=== PATIENT | female | born 1995 | race Caucasian/White ===

== ENCOUNTER 2020-05-12 19:24 | Emergency (ER) | payer OTHER ==
[~2020-05-12] VITALS: Ht 167.6 cm; Wt 93.0 kg
[~2020-05-12 19:24] MED LIST: ALBU90OI; ALBU90OI INH; AMOX500 PO; Amoxicillin500 MG PO; BUPROPION; Bactrim Ds Tab1 EACH PO; Biaxin500 MG PO; CIME400 PO; CIPR500 PO; CODACE30 PO; CRUTCH3 USE; CRUTCH4 USE; Cipro500 MG PO; DULO30 PO; ESCI10 PO; ESCI20 PO; ESTR2 PO; Epipen0.3 MG/0.3 IM; HYDACE5 PO; HYDACE7.5L PO; HYOS.125 SL; IBUP600 PO; IBUP800 PO; LEVSOD25 PO; LEVSOD50 PO; Loperamide2 MG PO; METO5A PO; MULVITMINE PO; Macrobid 100 M100 MG PO; NAPR500 PO; NAPR550 PO; Norco 5-325 Ta1 EACH PO; ONDA4ODT MM; OXYACE5T PO; PHENA100 PO; PHENA200 PO; PROM25 PO; Pepcid40 MG PO; Percocet 5-3251 EACH PO; Prednisone20 MG PO; Prilosec20 MG PO; Protonix40 MG PO; Pyridium200 MG PO; RXCODACET PO; RXHYDACE PO; RXPHEN200 PO; RXSULTRIDS PO; RXTRAM50 PO; SULTRIDS PO; TRAM50 PO; Zofran Odt4 MG PO; Zofran Odt4 MG SL
[2020-05-12 20:29] LABS: BASOPHILS ABSOLUTE AUTO 0.07 K/mm3 (0.00-0.23); BASOPHILS PERCENT AUTO 1 % (0-2); EOSINOPHILS ABSOLUTE AUTO 0.09 K/mm3 (0.00-0.68); EOSINOPHILS PERCENT AUTO 1 % (0-6); Hematocrit 44.7 % (33.0-51.0); Hemoglobin 14.9 g/dL (11.5-16.0); IMMATURE GRAN ABSOLUTE AUTO 0.04 K/mm3 (0.00-0.10); IMMATURE GRAN PERCENT AUTO 0 % (0-1); LYMPHOCYTES ABSOLUTE AUTO 3.06 K/mm3 (0.84-5.20); LYMPHOCYTES PERCENT AUTO 21 % (21-46); MONOCYTES PERCENT AUTO 6 % (4-13); Mean Corpuscular HGB Conc 33.3 g/dL (31.5-36.5); Mean Corpuscular Volume 93 fL (80-100); Mean Platelet Volume 8.4 fL (9.1-12.4); NEUTROPHILS ABSOLUTE AUTO 10.25 K/mm3 (1.96-9.15); NEUTROPHILS PERCENT AUTO 71 % (41-73); Platelet Count 422 K/mm3 (150-400); RDW Coefficient Variation 12.7 % (11.7-14.2); RDW Standard Deviation 43.8 fL (35.1-46.3); Red Blood Cell Count 4.81 M/mm3 (3.80-5.20); White Blood Cell Count 14.41 K/mm3 (4.00-11.30)
[2020-05-12 20:55] LABS: Alanine Aminotransfer (ALT/SGP 47 U/L (12-78); Alk Phos 50 U/L (50-136); Anion Gap 11 mmol/L (6-16); Aspartate Aminotrans (AST/SGOT 44 U/L (12-37); Bilirubin, Total 0.3 mg/dL (0.1-1.0); Blood Urea Nitrogen 9 mg/dL (8-24); Bun/Creatinine Ratio 15.2 (12.0-20.0); CO2, Blood 23 mmol/L (21-32); Calcium, Blood 8.8 mg/dL (8.5-10.1); Chloride, Blood 108 mmol/L (98-108); Creatinine, Blood 0.59 mg/dL (0.40-1.00); Globulin, Blood 4.1 g/dL (2.2-4.0); Glomerular Filtration Rate >60 (60-); Glucose, Blood 139 mg/dL (70-99); Potassium, Blood 3.6 mmol/L (3.5-5.5); Sodium, Blood 142 mmol/L (136-145); Total Protein, Blood 8.1 g/dL (6.4-8.2); Troponin I <0.015 ng/mL (0.000-0.040)
[2020-05-12 21:50] LABS: Free Thyroxine 1.01 ng/dL (0.70-1.60)
[2020-05-12 21:52] LABS: Thyroid Stimulating Hormone 1.7 uIU/mL (0.360-4.800)
== END 2020-05-12 21:48 | disposition home or self-care (01) ==
LOC: ER 19:24
PROVIDERS: Emergency Medicine
DX: R00.0 Tachycardia, unspecified (principal); F41.9 Anxiety disorder, unspecified; Z87.891 Personal history of nicotine dependence
CPT/HCPCS: 36415; 71046; 80053; 84439; 84443; 84484; 85025; 93005; 93010; 96374; 96375; 99285-25; J0153; J2060; J2405; J7030

== ENCOUNTER 2021-01-15 20:32 | Emergency (ER) | payer OTHER ==
[~2021-01-15] VITALS: Ht 167.6 cm; Wt 88.5 kg
[2021-01-15] MEDS ORDERED: SERT100 (21:01)
[2021-01-15] MEDS ORDERED: OMEP20ER (21:01)
[2021-01-15] MEDS ORDERED: BLOOD PRESSURE (21:02)
[2021-01-15] MEDS ORDERED: LIDO700A20 TOP (22:05)
[2021-01-15] MEDS ORDERED: Voltaren100 GM TOP (22:05)
== END 2021-01-15 22:39 | disposition home or self-care (01) ==
LOC: ER 20:32
DX: S23.29XA Dislocation of other parts of thorax, initial encounter (principal); E03.9 Hypothyroidism, unspecified; I10 Essential (primary) hypertension; Z79.899 Other long term (current) drug therapy; Z87.891 Personal history of nicotine dependence; X50.1XXA Overexertion from prolonged static or awkward postures, initial encounter
CPT/HCPCS: 71101; 96372; 99283-25; A9270; J1170; J1790; J1885

== ENCOUNTER 2022-01-17 10:47 | Inpatient (IN) | payer OTHER ==
[~2022-01-17] VITALS: Ht 167.6 cm; Wt 96.9 kg
[~2022-01-17 10:47] MED LIST changes: +BLOOD PRESSURE; +LIDO700A20 TOP; +OMEP20ER PO; +SERT100 PO; +Voltaren100 GM TOP
[2022-01-17] MEDS ORDERED: METOPROLOL TART PO (11:23)
[2022-01-17 11:31] LABS: BASOPHILS ABSOLUTE AUTO 0.07 K/mm3 (0.00-0.23); BASOPHILS PERCENT AUTO 1 % (0-2); EOSINOPHILS ABSOLUTE AUTO 0.04 K/mm3 (0.00-0.68); EOSINOPHILS PERCENT AUTO 1 % (0-6); Hemoglobin 15.3 g/dL (11.5-16.0); IMMATURE GRAN ABSOLUTE AUTO 0.02 K/mm3 (0.00-0.10); IMMATURE GRAN PERCENT AUTO 0 % (0-1); LYMPHOCYTES ABSOLUTE AUTO 2.11 K/mm3 (0.84-5.20); LYMPHOCYTES PERCENT AUTO 27 % (21-46); MONOCYTES ABSOLUTE AUTO 0.51 K/mm3 (0.16-1.47); MONOCYTES PERCENT AUTO 7 % (4-13); Mean Corpuscular HGB 32.4 pg (26.0-34.0); Mean Corpuscular HGB Conc 34.8 g/dL (31.5-36.5); Mean Corpuscular Volume 93 fL (80-100); Mean Platelet Volume 8.3 fL (9.1-12.4); NEUTROPHILS ABSOLUTE AUTO 5.04 K/mm3 (1.96-9.15); NEUTROPHILS PERCENT AUTO 65 % (41-73); Platelet Count 249 K/mm3 (150-400); RDW Coefficient Variation 14.9 % (11.7-14.2); RDW Standard Deviation 51.2 fL (35.1-46.3); Red Blood Cell Count 4.72 M/mm3 (3.80-5.20); White Blood Cell Count 7.79 K/mm3 (4.00-11.30)
[2022-01-17 11:33] LABS: Source, Urine Clean Catch
[2022-01-17 11:39] LABS: Bilirubin, Urine Neg (Neg); Blood, Urine Neg (Neg); Glucose Qualitative, Urine Neg (Neg); Ketones, Urine 2+ (Neg); Leukocyte Esterase, Urine 1+ (Neg); Nitrite, Urine Neg (Neg); Protein, Urine 2+ (Neg); Urobilinogen, Urine 1+ (Normal)
[2022-01-17 11:45] LABS: Appearance, Urine Hazy (Clear); Color, Urine Pale Yellow (P-Yellow); Red Blood Cells, Urine 0-2 /hpf (0-2)
[2022-01-17 11:46] LABS: Bacteria Few /hpf; Mucus Heavy (0-Heavy); Squamous Epithelial Cells Many /hpf (Few)
[2022-01-17 11:56] LABS: Alanine Aminotransfer (ALT/SGP 168 U/L (12-78); Albumin, Blood 3.9 g/dL (3.4-5.0); Alk Phos 81 U/L (50-136); Anion Gap 18 mmol/L (6-16); Aspartate Aminotrans (AST/SGOT 324 U/L (12-37); Bilirubin, Total 0.7 mg/dL (0.1-1.0); Blood Urea Nitrogen 10 mg/dL (8-24); Bun/Creatinine Ratio 15.8 (12.0-20.0); CO2, Blood 20 mmol/L (21-32); Calcium, Blood 8.7 mg/dL (8.5-10.1); Chloride, Blood 101 mmol/L (98-108); Creatinine, Blood 0.63 mg/dL (0.40-1.00); Globulin, Blood 3.8 g/dL (2.2-4.0); Glomerular Filtration Rate >60 (60-); Glucose, Blood 175 mg/dL (70-99); Potassium, Blood 3.5 mmol/L (3.5-5.5); Sodium, Blood 139 mmol/L (136-145); Total Protein, Blood 7.7 g/dL (6.4-8.2)
[2022-01-17 16:05] LABS: Triglycerides 1534 mg/dL (30-140)
[2022-01-17 16:46] LABS: Base Excess Venous -1.6 mmol/L; Bicarbonate Venous 23.5 mmol/L (24.0-30.0); PCO2 Venous 33.4 mmHg (38-42); PO2 Venous 63.2 mmHg (38-42); pH Blood Venous 7.44 (7.34-7.37)
--- NOTE | 2022-01-17 19:15 | NUR ---
Patient arrived on the unit at 1830. She was accompanied by one staff. Right away she complained of pain, she was given prn Fentanyl at 1900. Patient is currently NPO. RN gave report to oncoming shift. Patient had no requests at this time
[2022-01-17 22:08] LABS: Triglycerides 623 mg/dL (30-140)
--- NOTE | 2022-01-17 22:56 | NUR ---
PATIENT STATED PAIN 10/10 DURING REASSESSMENT OF PAIN AFTER SHIFT REPORT. PATIENT HAD ALREADY GOTTEN FENTYNL AT 1900. PATIENT STARTED TO FEEL NAUSEATED WELL, ZOFRAN WAS GIVEN. NOTIFIED PHYSICIAN OF PATIENTS WORSENING PAIN THAT IS NOT RELIEVED WITH CURRENT MEDICATION REGIME. LACTIC ACID CRITICAL AT 3.8, PHYSICIAN AWARE ORDERED 1L BOLUS. PATIENT CONTINUES TO EXPRESS PAIN. PHYSICIAN PUT ORDERS FOR UPGRADE TO ICU.
[2022-01-18 01:22] LABS: Anion Gap 10 mmol/L (6-16); Blood Urea Nitrogen 6 mg/dL (8-24); Bun/Creatinine Ratio 11.2 (12.0-20.0); CO2, Blood 21 mmol/L (21-32); Calcium, Blood 7.3 mg/dL (8.5-10.1); Chloride, Blood 111 mmol/L (98-108); Creatinine, Blood 0.54 mg/dL (0.40-1.00); Glomerular Filtration Rate >60 (60-); Glucose, Blood 155 mg/dL (70-99); Potassium, Blood 3.1 mmol/L (3.5-5.5); Sodium, Blood 142 mmol/L (136-145)
[2022-01-18 04:42] LABS: BASOPHILS ABSOLUTE AUTO 0.02 K/mm3 (0.00-0.23); BASOPHILS PERCENT AUTO 0 % (0-2); EOSINOPHILS PERCENT AUTO 1 % (0-6); Hematocrit 36.3 % (33.0-51.0); Hemoglobin 12.4 g/dL (11.5-16.0); IMMATURE GRAN ABSOLUTE AUTO 0.03 K/mm3 (0.00-0.10); IMMATURE GRAN PERCENT AUTO 0 % (0-1); LYMPHOCYTES ABSOLUTE AUTO 1.98 K/mm3 (0.84-5.20); LYMPHOCYTES PERCENT AUTO 24 % (21-46); MONOCYTES ABSOLUTE AUTO 0.55 K/mm3 (0.16-1.47); MONOCYTES PERCENT AUTO 7 % (4-13); Mean Corpuscular HGB 32.4 pg (26.0-34.0); Mean Corpuscular HGB Conc 34.2 g/dL (31.5-36.5); Mean Corpuscular Volume 95 fL (80-100); Mean Platelet Volume 9.8 fL (9.1-12.4); NEUTROPHILS PERCENT AUTO 67 % (41-73); Platelet Count 204 K/mm3 (150-400); RDW Standard Deviation 54.4 fL (35.1-46.3); Red Blood Cell Count 3.83 M/mm3 (3.80-5.20); White Blood Cell Count 8.18 K/mm3 (4.00-11.30)
[2022-01-18 06:26] LABS: International Normalized Ratio 1.05
[2022-01-18 06:32] LABS: Alanine Aminotransfer (ALT/SGP 131 U/L (12-78); Albumin, Blood 3.2 g/dL (3.4-5.0); Alk Phos 66 U/L (50-136); Anion Gap 8 mmol/L (6-16); Aspartate Aminotrans (AST/SGOT 268 U/L (12-37); Bilirubin, Total 0.9 mg/dL (0.1-1.0); Blood Urea Nitrogen 5 mg/dL (8-24); Bun/Creatinine Ratio 9.1 (12.0-20.0); CHOL/HDL RATIO 4.3; CO2, Blood 23 mmol/L (21-32); Calcium, Blood 7.7 mg/dL (8.5-10.1); Chloride, Blood 109 mmol/L (98-108); Cholesterol 172 mg/dL (50-200); Creatinine, Blood 0.55 mg/dL (0.40-1.00); Globulin, Blood 3.2 g/dL (2.2-4.0); Glomerular Filtration Rate >60 (60-); Glucose, Blood 123 mg/dL (70-99); HDL Cholesterol 40 mg/dL (>39); LDL/HDL RATIO 1.5; Low Density Lipoprotein Chol 61 mg/dL (0-110); Magnesium, Blood 2.4 mg/dL (1.6-2.4); Potassium, Blood 3.2 mmol/L (3.5-5.5); Sodium, Blood 140 mmol/L (136-145); Total Protein, Blood 6.4 g/dL (6.4-8.2); Triglycerides 355 mg/dL (30-140); Very Low Density Lipoprot Chol 71 mg/dL (6-28)
[2022-01-18 10:01] LABS: U Amphetamine Screen Not Detected; U Barbituate Screen Not Detected; U Benzodiazapine Screen Not Detected; U Cannabinoids Screen DETECTED; U Cocaine Screen Not Detected; U Methadone Screen Not Detected; U Methamphetamine Screen Not Detected; U Opiates Screen DETECTED; U Phencyclidine Screen Not Detected
[2022-01-18 10:02] LABS: U Buprenorphine Screen Not Detected; U Oxycodone Screen Not Detected; U Propoxyphene Screen Not Detected
--- NOTE | 2022-01-18 13:00 | NUR ---
UPDATE: This RN heard yelling and "help" coming from pt room. Pt's primary RN at bedside managing airway while pt having seizure. Dr. Nuñez called and notified; telephone order for 1mg of lorazapam.
--- NOTE | 2022-01-18 13:50 | NUR ---
1-2 minutes of witnessed contraction deserabret, then patient rasied knees to her chest was unconsolable scream, bitting on yankaur, medicated with 1 mg ativan, eyes nystagmus after ativan for 5 minutes, 2l o2 via nc, sats 95%, sbp 160, heart rate 160s, st rhythm, bs during episode was 202. patient lubna alert and oreinted, head ct done waiting for results, fentanyl production hardener restarted and patient educated on its use. patient deneis having a seizure any other time, no new medications have been ordered. resting in bed now, call light with in reach, makes needs known, reports jaw sorness, bp 161/107, denies cp or nv, wctm
--- NOTE | 2022-01-18 14:36 | NUR ---
DR CRABTREE NOTIFED DURING SEIZURE ACTIVITY, MEDICATED WITH ATIVAN, NEW ORDERS FOR ATIVAN PRN, LIBRIUM, D/C THE INSULIN GTT AND D10, PATIENT STILL ALERT AND ORIENTED, CALL LIGHT WITH IN REACH
--- NOTE | 2022-01-18 18:37 | NUR ---
ALERT AND ORIENTED, MAKES NEEDS KNOWN, WITNESSED 1-2 MINUTE DECORATE SEIZURE ACTIVITY, HEAD CT DONE, PATIENT DENEIS HAVING PREVIOUS SEIZURES, CIWA STARTED, FENTANYL OFFICE SERVICES MANAGER FOR L QUAD CONSTANT PAIN 5/10, L QUAD PAIN FROM PALPITATION, NPO, BSU TO VOID, SKIN CDI, TATOOS. LS CTA, CLEARS CONGESTION WITH COUGH, SATS ON RA 95-100%. NAUSEATED MEDICATED WITH ZOFRAN AND REGLAN. WILL RELAY TO PM RN, WCTM
--- NOTE | 2022-01-19 01:50 | NUR ---
Pain uncontrolled with LEAD PAINTER. Dr Hearn called, per physcian request, spoke with patient regarding past reaction to dilaudid. States "made heart rate go really high". Is willing to try it again since is on heart monitor. States just wants pain to let up. Advised Dr Hearn and order recieved for Dilaudid prn. Dilaudid removed from allergy list.
--- NOTE | 2022-01-19 05:13 | NUR ---
Medicated as needed for CIWA score of 8, per eMAR. Rested for a couple of hours, going without pushing ZIGZAG STITCHER dosing button. Upon waking pain uncontrolled and could not get relief with ZIGZAG STITCHER. Dr mejia recieved for PRN dilaudid after determining with patient no allergy. Resting again after for a couple hours.
[2022-01-19 07:45] LABS: Hematocrit 39.1 % (33.0-51.0); Hemoglobin 12.7 g/dL (11.5-16.0)
[2022-01-19 08:10] LABS: Alanine Aminotransfer (ALT/SGP 99 U/L (12-78); Albumin, Blood 3.3 g/dL (3.4-5.0); Albumin/Globulin Ratio 0.9 (0.8-1.8); Alk Phos 70 U/L (50-136); Anion Gap 10 mmol/L (6-16); Aspartate Aminotrans (AST/SGOT 142 U/L (12-37); Bilirubin, Total 1.4 mg/dL (0.1-1.0); Blood Urea Nitrogen 3 mg/dL (8-24); Bun/Creatinine Ratio 4.5 (12.0-20.0); CO2, Blood 22 mmol/L (21-32); Calcium, Blood 8.4 mg/dL (8.5-10.1); Chloride, Blood 107 mmol/L (98-108); Creatinine, Blood 0.66 mg/dL (0.40-1.00); Globulin, Blood 3.8 g/dL (2.2-4.0); Glomerular Filtration Rate >60 (60-); Glucose, Blood 117 mg/dL (70-99); Potassium, Blood 3.2 mmol/L (3.5-5.5); Sodium, Blood 139 mmol/L (136-145); Total Protein, Blood 7.1 g/dL (6.4-8.2)
--- NOTE | 2022-01-19 09:24 | NUR ---
ASSUMED CARE OF PATIENT 0700: AOX4, WITHDRAWN, COMPLAINS 08/08 ABD PAIN, 1MG DILAUDID GIVEN, CABLE FERRY OPERATOR FENT ORDER CHANGED TO DILAUID CABLE FERRY OPERATOR PUMP WILL START WHEN READY FROM PHARMACY, MILD NAUSEA, CIWA 10, 25 LIBRIUM GIVEN, VSS SOME LOW SATS RA, 2L NC INITAITED, WILL CONTINUE TO MONITOR.
--- NOTE | 2022-01-19 18:04 | NUR ---
AOX4, COMPLAINS OF ABD PAIN, FENT PLAN NURSE CHANGED TO DILAUDID PLAN NURSE WITH SOMEWHAT BETTER CONTROL, ONE EPISODE NAUSEA, 4MG ZOFRAN GIVEN, 2L NC INITIATED FOR SOME DESAT EARLY AM WHEN SLEEPING HIGH 80S, LUNGS CLEAR, DENIES SOB, ABD TENDER MORE RUQ, HYPOACTIVE BOWELS, CIWA BETWEEN 7-10, LIBRIUM 50MG GIVEN TOTAL, K 3.2, 40MEQ GIVEN, WILL CONTINUE TO MONITOR AND REPORT TO NIGHT RN.
--- NOTE | 2022-01-19 19:30 | NUR ---
Assumed care after report recieved. Assessment completed, states pain is better controlled with dilaudid MAINTENANCE CUSTODIAN but still having pain. Medicated for nausea. CIWA at 4. Denies other needs at this time.
[2022-01-20 04:38] LABS: Hematocrit 37.3 % (33.0-51.0); Hemoglobin 12.3 g/dL (11.5-16.0); Mean Corpuscular HGB 33.3 pg (26.0-34.0); Mean Platelet Volume 8.6 fL (9.1-12.4); Platelet Count 182 K/mm3 (150-400); RDW Coefficient Variation 16.6 % (11.7-14.2); RDW Standard Deviation 60.6 fL (35.1-46.3); Red Blood Cell Count 3.69 M/mm3 (3.80-5.20); White Blood Cell Count 8.35 K/mm3 (4.00-11.30)
[2022-01-20 04:43] LABS: Mean Corpuscular Volume 101 fL (80-100)
[2022-01-20 05:02] LABS: Alanine Aminotransfer (ALT/SGP 84 U/L (12-78); Albumin, Blood 3.4 g/dL (3.4-5.0); Alk Phos 75 U/L (50-136); Anion Gap 7 mmol/L (6-16); Aspartate Aminotrans (AST/SGOT 111 U/L (12-37); Bilirubin, Total 1.4 mg/dL (0.1-1.0); Blood Urea Nitrogen 5 mg/dL (8-24); Bun/Creatinine Ratio 7.7 (12.0-20.0); CO2, Blood 25 mmol/L (21-32); Calcium, Blood 8.6 mg/dL (8.5-10.1); Chloride, Blood 108 mmol/L (98-108); Creatinine, Blood 0.65 mg/dL (0.40-1.00); Globulin, Blood 3.5 g/dL (2.2-4.0); Glomerular Filtration Rate >60 (60-); Glucose, Blood 93 mg/dL (70-99); Sodium, Blood 140 mmol/L (136-145); Total Protein, Blood 6.9 g/dL (6.4-8.2)
--- NOTE | 2022-01-20 06:03 | NUR ---
pain uncontrolled at beginning of shift. Order recv'd to increase GUARD RANGE demand dose. Pain controlled improved, able to rest most of night. States feeling a little better this morning after resting, feels pain is improving. Rates at 4/10 at this time. Denies other needs at this time
--- NOTE | 2022-01-20 13:58 | NUR ---
Pt. is awake and in bed. Pt. welcomes my visit. Spouse is present. Pt. is unsettled about the pain she is experiencing, and her inability to eat or drink without being nauseous. Pt. displays evidence of engagement. Establish rapport. Aurora with pt. and spouse. Pt. verbalizes gratitude for spiritual care visit, and welcomes me to return.
--- NOTE | 2022-01-20 15:36 | NUR ---
SUMMARY PT A/O X4. PLEASANT AND COOPERATIVE. PT HAVING ABD PAIN STILL AND NAUSEA. DILAUDID SPLITTING MACHINE OPERATOR HELPER RUNNING. CIWA 2 TODAY. NO SIGN OF SEIZURES. PT ABLE TO STAND AND PIVOT TO BSC WITH MINIMAL ASSIST. NO SIGN OF DISTRESS. PT TRANSFERED TO MEDICAL FLOOR VIA W/C. REPORT GIVEN TO RN.
[2022-01-21 07:20] LABS: Alanine Aminotransfer (ALT/SGP 68 U/L (12-78); Albumin, Blood 3.1 g/dL (3.4-5.0); Albumin/Globulin Ratio 0.8 (0.8-1.8); Alk Phos 78 U/L (50-136); Anion Gap 11 mmol/L (6-16); Aspartate Aminotrans (AST/SGOT 89 U/L (12-37); Bilirubin, Total 1.1 mg/dL (0.1-1.0); Blood Urea Nitrogen 3 mg/dL (8-24); Bun/Creatinine Ratio 5.6 (12.0-20.0); CO2, Blood 22 mmol/L (21-32); Calcium, Blood 8.7 mg/dL (8.5-10.1); Chloride, Blood 105 mmol/L (98-108); Creatinine, Blood 0.53 mg/dL (0.40-1.00); Globulin, Blood 3.9 g/dL (2.2-4.0); Glomerular Filtration Rate >60 (60-); Glucose, Blood 78 mg/dL (70-99); Potassium, Blood 4.2 mmol/L (3.5-5.5); Sodium, Blood 138 mmol/L (136-145)
--- NOTE | 2022-01-21 13:55 | NUR ---
CALL PLACE TO IN REFERENCE TO PATIENT REQUEST TO BE DISCHARGE HOME,MD ADVISED NURSE THAT PATIENT HAS TOLERATE HER MEALS AND PAIN CONTROL.PATIENT MADE OF PLAN AND AGREE TO START OTHER PAIN REGIMEN THAN THE CEILING INSTALLER PUMP.MD ADVISED TO DISCONTIUE CEILING INSTALLER IF PATIENT AGREE WITH THE PLAN TO TRY OTHER PAIN REGIMEN.
--- NOTE | 2022-01-21 17:09 | NUR ---
PATIENT IS AWKE,ALERT AND ORIENTED TIMES THREE. PAIN CONTOL. PATIENT GEOLOGICAL DRAFTER PUMP DISCONTINUE. PATIENT DIET WAS ADVANCE TO CLEARS, PATIENT TOLERATED DIET WELL.NO ACUTE DISTRESS NOTED.
--- NOTE | 2022-01-21 18:07 | NUR ---
pATIENT ALERT NURSE THAT SHE MISS HER KIDS AT HOME AND SHE CANNOT SPEND ANOTHER NIGHT IN THE HOSPITAL. PATIENT WAS MADE AWRE THAT CHANGE HER FROM THE BANKING CENTER MANAGER PUMP AND UPGRADE HER DIET TO EVALUATE IF SHE IS DOING BETTER AND TOLERATING HER DIET. PATIENT STATES " I KNOW,BUT I HAVE TO LEAVE. I WILL SIGN THE FORM". PATIENT RIGHT WAS RESPECTED. MD MADE AWRE THAT PATIENT WISHES TO LEAVE AGAINST MEDICAL ADVISED, NO NEW ORDER RECIEVED. POWERGLIDE REMOVED PER PROTOCOL.
== END 2022-01-21 17:55 | disposition left against medical advice (07) | DRG 642 ==
LOC: ER 10:47 → ICUW 18:26 → MEDS 18:35 → ICUW 22:27 → MEDS 01-20 15:18
PROVIDERS: Emergency Medicine; Internal Medicine; Nurse Practitioner Acute Care; ADMIT Internal Medicine
PROC: HZ2ZZZZ Detoxification Services for Substance Abuse Treatment (ICD-10-PCS; principal; 2022-01-17)
DX: E78.1 Pure hyperglyceridemia (principal); K85.90 Acute pancreatitis without necrosis or infection, unspecified; F10.239 Alcohol dependence with withdrawal, unspecified; F32.A Depression, unspecified; K21.9 Gastro-esophageal reflux disease without esophagitis; K76.0 Fatty (change of) liver, not elsewhere classified; R56.9 Unspecified convulsions; E03.9 Hypothyroidism, unspecified; I10 Essential (primary) hypertension; Z88.6 Allergy status to analgesic agent; Z98.51 Tubal ligation status; Z79.899 Other long term (current) drug therapy
CPT/HCPCS: 36415; 70450; 74177; 76705; 80048; 80053; 80061; 81001; 81025; 82803; 82947; 83036; 83605; 83690; 83735; 84443; 84478; 85014; 85018; 85025; 85027; 85610; 87040; 87077; 87086; 87186; 94762; 96361; 96365; 96375; 96376; 99285-25; A9270; C1751; C9113; J1170; J1650; J1815; J1885; J2060; J2270; J2405; J2550; J2765; J3010; J3411; J3475; J3480; J7030; J7040; J7042

== ENCOUNTER → 2023-04-02 | Outpatient (CLI) | payer OTHER ==
[~2023-04-02] MED LIST changes: +METOPROLOL TART PO
[2023-04-05 15:11] LABS: HPV 16 Negative (Negative); HPV 18 Negative (Negative); HPV OTHER HR TYPES Negative (Negative)
== END | disposition home or self-care (01) ==
LOC: LAB 13:27 → LAB SHORT 13:27
PROVIDERS: Nurse Practitioner Family
DX: Z01.419 Encounter for gynecological examination (general) (routine) without abnormal findings (principal)
CPT/HCPCS: 87624; 88175

== ENCOUNTER → 2025-07-03 | Outpatient (CLI) | payer OTHER ==
[2025-07-05 15:06] LABS: Stool Occult Bld Immuno 1 Negative (NEGATIVE)
== END ==
LOC: LAB 21:40 → LAB SHORT 21:40
DX: K92.1 Melena (principal)
CPT/HCPCS: G0328

== ENCOUNTER 2025-11-03 18:49 | Emergency (ER) | payer OTHER ==
[~2025-11-03] VITALS: Ht 167.6 cm; Wt 59.0 kg
[2025-11-03 18:57] VITALS: BP 125/70
[2025-11-03] MEDS ORDERED: IBUP600 PO (20:35)
[2025-11-03] MEDS ORDERED: ACET500 PO (20:35)
== END 2025-11-03 20:49 | disposition home or self-care (01) ==
LOC: ER 18:49
DX: M25.521 Pain in right elbow (principal); E03.9 Hypothyroidism, unspecified; I10 Essential (primary) hypertension; Z87.891 Personal history of nicotine dependence; Z79.899 Other long term (current) drug therapy
CPT/HCPCS: 73080; 99283-25; A9270